=== PATIENT | male | born 1995 | race Caucasian/White ===

== ENCOUNTER 2023-02-20 08:19 | Emergency (ER) | payer OTHER ==
[2023-02-20] MEDS ORDERED: Propofol 200 MG/20 ML SDV IVPUSH ONE (08:25)
[2023-02-20] MEDS ORDERED: Sodium Chloride 0.9% 1,000 ML IV ONE (08:25)
[2023-02-20] MEDS ORDERED: HYDROmorphone 1 MG/ML Syringe IVPUSH ONE (09:12)
[2023-02-20] MEDS ORDERED: Ketorolac 30 MG/ML SDV IVPUSH ONE (10:08)
== END 2023-02-20 10:59 | disposition home or self-care (01) ==
LOC: MW.ED 08:19
DX: S82.442A Displaced spiral fracture of shaft of left fibula, initial encounter for closed fracture (principal); W01.0XXA Fall on same level from slipping, tripping and stumbling without subsequent striking against object, initial encounter; Y92.59 Other trade areas as the place of occurrence of the external cause; Y99.0 Civilian activity done for income or pay
CPT/HCPCS: 27768; 73600; 73610; 96374; 99152; 99284; J1885; J2704; J7030